=== PATIENT | male | born 1985 | race African-American/Black ===

== ENCOUNTER 2020-11-04 14:39 | Outpatient (CLI) | payer OTHER, SELFPAY ==
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
--- NOTE | ~2020-11-04 | XR_ITS ---
XR shoulder LT min 2V DATE: 11/04/2020 15:24 INDICATION: Proximal left arm pain. No injury. TECHNIQUE: 4 views COMPARISON: None FINDINGS: No fracture or dislocation, periosteal reaction or bone destruction or abnormal soft tissue calcification. IMPRESSION: Negative Reviewed, dictated and finalized at location A. IMPRESSION: Negative
--- NOTE | ~2020-11-04 | XR_ITS ---
XR shoulder RT min 2V DATE: 11/04/2020 15:25 INDICATION: Proximal arm and shoulder pain for 2 years. No injury. TECHNIQUE: 4 views COMPARISON: None FINDINGS: No fracture or dislocation, periosteal reaction or bone destruction or abnormal soft tissue calcification. Normal alignment at the acromioclavicular and glenohumeral joints. IMPRESSION: Negative Reviewed, dictated and finalized at location A. IMPRESSION: Negative
[2020-11-04 15:54] LABS: Hematocrit 47.2 % (42.0-52.0); Hemoglobin 15.2 g/dL (14.0-18.0); Mean Corpuscular HGB Conc 32.2 g/dl (32-36); Mean Corpuscular Hemoglobin 29.1 pg (26-34); Mean Corpuscular Volume 90.4 fl (80-100); Mean Platelet Volume 11.2 fl (7.4-10.4); Platelet Count Result 202 k/mm3 (150-375); Red Blood Count 5.22 M/mm3 (4.6-6.20); Red Cell Distribution Width 12.9 % (11.5-14.5); White Blood Count 9.2 K/mm3 (4.5-10.0)
[2020-11-04 16:04] LABS: Alanine Aminotransferase 15 U/L (4-50); Albumin Level 4.6 g/dL (3.5-5.1); Alkaline Phosphatase 60 U/L (38-126); Anion Gap 8 mmol/L (8-16); Aspartate Amino Transferase 18 U/L (17-59); Bilirubin,Total 0.5 mg/dL (0.2-1.3); Blood Urea Nitrogen 9 mg/dL (9-20); Carbon Dioxide 26 mmol/L (22-30); Chloride 105 mmol/L (98-107); Cholesterol 204 mg/dL (0-200); Estimated Glomerular Filt Rate > 60; Glucose 107 mg/dL (65-110); HDL Direct 33 mg/dL; Sodium 139 mmol/L (137-145); Triglycerides 119 mg/dL (<150)
[2020-11-04 16:15] LABS: LDL Cholesterol Direct 131 mg/dL
[2020-11-04 16:25] LABS: Creatinine Urine 231.4 mg/dL
[2020-11-04 16:30] LABS: MALB Creatinine Ratio 4.6 mg/g (0-30); Microalbumin Urine Random 10.6 mg/L (0-16.7)
[2020-11-04 16:41] LABS: Hemoglobin A1C 5.7 % (<5.7)
[2020-11-04 17:17] LABS: Free T4 Free Thyroxine 1.05 ng/mL (0.78-2.19); Vitamin D 25 Hydroxy 17.8 ng/mL
== END 2020-11-04 14:40 | disposition home or self-care (01) ==
PROVIDERS: PCP Internal Medicine Hematology & Oncology; Visit Provider Emergency Medicine
DX: M25.512 Pain in left shoulder (principal); M25.511 Pain in right shoulder; R79.9 Abnormal finding of blood chemistry, unspecified; Z72.0 Tobacco use
CPT/HCPCS: 36415; 71046; 73030; 80053; 80061; 82043; 82306; 83036; 84439; 84443; 85027